=== PATIENT | female | born 1995 | race Caucasian/White ===

== ENCOUNTER 2018-12-20 20:14 | Emergency (ER) | payer BC ==
[~2018-12-20] VITALS: Ht 152.4 cm; Wt 43.2 kg
[2018-12-20] MEDS ORDERED: NORE1CAP PO (20:31)
[2018-12-20] MEDS ORDERED: IBUPROFEN 800 MG TABLET PO ONE (21:30)
[2018-12-20 22:00] VITALS: BP 128/72
== END 2018-12-20 22:33 | disposition home or self-care (01) ==
LOC: EMS 20:15
DX: S92.512A Displaced fracture of proximal phalanx of left lesser toe(s), initial encounter for closed fracture (principal); W22.03XA Walked into furniture, initial encounter; Y93.89 Activity, other specified; Y92.89 Other specified places as the place of occurrence of the external cause; Y99.8 Other external cause status